=== PATIENT | female | born 1970 | race Caucasian/White ===

== ENCOUNTER → 2017-12-21 | Day surgery (SDC) | payer SELFPAY ==
[~2017-12-21] VITALS: Ht 149.9 cm; Wt 73.0 kg
[~2017-12-21] MED LIST: ALBU0.63 NEB; ALBUS PO; BUPIVACAINE HCL PF 0.5% 30 ML VIAL ONE; CEPH-460 PO; CHLORHEXIDINE GLUCONATE 2 % 1 PACK (2 CLOTHS) TOPICAL PRN; DEXAMETHASONE SOD PHOS 4 MG/ML VIAL OTHER ONE; FAMOTIDINE 20 MG/2 ML VIAL ONE; HYDR-3288 PO; IBUP1TAB7 PO; LACTATED RINGER'S 1000 ML IV PRN; LIDOCAINE HCL 1% PF 5 ML SYRINGE OTHER ONE; LIDOCAINE HCL 2% 50 ML VIAL ONE; METOPROLOL TARTRATE 25 MG TAB PO PRN; MIDAZOLAM HCL 2 MG/2 ML VIAL ONE; MULT-65 PO; NEOMYCIN/POLYMYXIN 1 ML G.U. IRRIGANT ONE; NORC5TAB PO; ONDANSETRON HCL 4 MG/2 ML VIAL IV PUSH ONE; OS-CTAB3 PO; PHENYLEPH/NS 1000 MCG/10 ML SYR OTHER ONE; POVIDONE IODINE 5% (ANTISEPSIS KIT) 4 APPLICATIONS EACH NARE PRN; PRIL20TA2 PO; PROPOFOL 200 MG/20 ML AMP OTHER ONE; RESP: ALBUTEROL 2.5 MG/3 ML NEB (PRN) ONE; SODIUM CHLORID 0.9% 500 ML IV PRN; SYMB80AE INH; VITA500T83 PO; ceFAZolin 2 GM PREMIX 50 ML IV SCH
[2017-12-21 12:35] LABS: HEMATOCRIT 46.1 % (35.0-46.0); HEMOGLOBIN 15.4 GM/DL (11.6-15.3); MEAN CELL VOLUME 90.8 FL (80.0-100.0); MEAN CORPUSCULAR HEMOGLOBIN 30.4 PG (27.0-34.0); MEAN CORPUSCULAR HGB CONC 33.4 % (32.0-36.0); MEAN PLATELET VOLUME 7.7 FL (7.0-11.0); PLATELET COUNT 345 TH/MM3 (150-450); RED BLOOD COUNT 5.08 MIL/MM3 (4.00-5.30); RED CELL DISTRIBUTION WIDTH 13.4 % (11.6-17.2); WHITE BLOOD COUNT 10.3 TH/MM3 (4.0-11.0)
[2017-12-21 17:35] VITALS: BP 122/74; PULSE 92; RESP 18; TEMP 98.1; O2SAT 97
--- NOTE | 2017-12-24 11:16 | MP ---
cc: NOEL MARQUEZ III, M.D. DATE OF SURGERY: 12/21/2017 PREOPERATIVE DIAGNOSIS: 1. Right fourth proximal phalanx fracture, intra-articular. 2. Right fifth metacarpal fracture. POSTOPERATIVE DIAGNOSIS: 1. Right fourth proximal phalanx fracture, intra-articular. 2. Right fifth metacarpal fracture. PROCEDURE: 1. Right fifth metacarpal open reduction, internal fixation. 2. Right fourth proximal phalanx open reduction, internal fixation, intra-articular, multiple fragments with 22 modifier. 3. Use of image intensifier. SURGEON: Noel Marquez III, MD. DESCRIPTION OF PROCEDURE: The patient was brought to the operating room and placed supine on the operating room table. After the correct site and side of surgery was verified by members of each team in the room multiple times, including the patient and myself, and after adequate general anesthesia had been achieved, the right upper extremity was prepped and draped in traditional sterile surgical fashion, using the C-arm, the entire procedure was verified, a 50/50 mixture of 2% plain lidocaine, 0.5% plain Marcaine was infiltrated in the skin and subcutaneous tissue deep to the bone for both planned procedures, the limb was exsanguinated with an Phillip wrap. A highly placed well-padded axillary tourniquet was inflated to 200 mmHg for total of 91 minutes. Manipulation of the fifth metacarpal did not yield any reduction. Longitudinal incision was made ulnarly. Blunt dissection was performed. Bipolar electrocautery was used as needed, periosteal elevator was used to expose the base of the metacarpal. An organized clot was extracted. Thorough irrigation was performed. Provisional fixation was held with 0.035 cm K-wire and then two separate screws with a [employer] stainless steel modular handset were used. They were tailored to length and direction using the mini C-arm as a guide. The K-wire, I decided to leave in, as it held the length of the bone and this will be taken out in six weeks. There was no mal-angulation or mal-rotation of the fifth finger. Thorough irrigation was performed. The skin edges were reapproximated using interrupted and running 4-0 chromic sutures. The K-wire was cut, bent and buried. The longitudinal incision was made over the dorsal aspect of the fourth finger proximal phalanx, carried down through skin and subcutaneous tissue. Blunt dissection was performed. Bipolar was used as needed. The extensor tendon was opened in its midline. Periosteal elevation revealed the injury which was a fracture at the base of the proximal phalanx, and it was intra-articular and the base was in three small pieces. Thorough irrigation was performed. Digital manual reduction was held. The most appropriate plate available from the set was selected, cut and shaped meticulously and then gently three proximal screws and four distal screws were drilled and placed, tailored to length and direction with some bone graft placed through one of the proximal screw holes. C-arm examination revealed anatomic alignment. Loop visualization revealed the articular surface was all reapproximated and fully intact. Passive range of motion did not reveal any mal-angulation or mal-rotation and allowed full range of motion at all joints. There were no other anatomic abnormalities identified. Thorough irrigation was performed. The tendons were repaired with a running 3-0 Vicryl suture and the skin edges reapproximated using running 4-0 chromic suture. The hand and arm were thoroughly cleansed and dried. Betadine Adaptic dressing applied atop of the wounds. Additional local anesthetic was injected for postoperative pain control. A well padded, well moulded, volar immobilizing splint was made keeping all fingers immobilized. The axillary tourniquet was released. The hand and all fingers became immediately soft, pink, and warm with brisk capillary refill of less than two seconds. The patient was awakened from anesthesia, transported to the Post-Anesthesia Care Unit awake and in stable condition. At the end of the case, sponge, needle and instrument counts were correct as reported by the nurses in the room. MD JOE Buck III/CED /4:03 PM /10:51 AM
== END | disposition home or self-care (01) ==
LOC: PHSDC 11:21 → MERGE 11:21
PROVIDERS: ATTEND Orthopaedic Surgery Hand Surgery
DX: S62.614A Displaced fracture of proximal phalanx of right ring finger, initial encounter for closed fracture (principal); S62.336A Displaced fracture of neck of fifth metacarpal bone, right hand, initial encounter for closed fracture; W19.XXXA Unspecified fall, initial encounter; Y92.481 Parking lot as the place of occurrence of the external cause
CPT/HCPCS: 01830; 26615; 26735; 36415; 76000; 85027; C1713; J0690; J2250; J3010; J7120; J7613; J1100; J2370; J2405

== ENCOUNTER 2018-11-03 09:27 | Observation (INO) ==
[2018-11-03] MEDS ORDERED: Morphine Inj 4 MG/ML Vial IV.PUSH ONE ×3 (09:44→12:13)
[2018-11-03] MEDS ORDERED: Sod Chloride 0.9% Inj 1,000 ML IV.SIG ONE (09:44)
[2018-11-03 10:05] LABS: Baso % (Auto) 0.2 % (0.0-2.0); Eos % (Auto) 0.2 % (0.0-4.0); Hematocrit 45.6 % (35.0-46.0); Lymph # (Auto) 1.4 th/mm3 (1.0-4.8); Lymph % (Auto) 8.6 % (9.0-44.0); Mean Corpuscular HGB Conc 35.1 % (32.0-36.0); Mean Corpuscular Hemoglobin 33.2 pg (27.0-34.0); Mean Corpuscular Volume 94.5 fL (80.0-100.0); Mean Platelet Volume 7.7 fL (7.0-11.0); Mono # (Auto) 0.8 th/mm3 (0.0-0.9); Mono % (Auto) 4.8 % (0.0-8.0); Neut # (Auto) 14.1 th/mm3 (1.8-7.7); Neut % (Auto) 86.2 % (16.0-70.0); Platelet Count 362 th/mm3 (150-450); Red Blood Count 4.82 mil/mm3 (4.00-5.30); Red Cell Distribution Width 14.2 % (11.6-17.2); White Blood Count 16.4 th/mm3 (4.0-11.0)
--- NOTE | 2018-11-03 10:15 | ED ---
HPI General Chief Complaint: Extremity Injury, Upper Stated Complaint: Left Arm Complaint/Fall Time Seen by Provider: 11/03/18 09:40 Source: patient and family Mode of arrival: ambulatory Limitations: no limitations History of Present Illness HPI narrative: Patient is a 48-year-old female, past medical history significant for asthma and possible meningioma who presents with complaint of left upper extremity pain. She states that she was walking in the house and came to on the floor. She apparently had fallen onto her left arm and has had several falls with unknown cause. Family member states that she had to clean up a lot of "liquid" from around her there was not sure what this may have been (ie vomit or urine). The patient does not know if she hit her head or not. She denies any chest pain, shortness of breath, abdominal pain. MD complaint: injury to: Reports left and arm Onset (ago): hour(s) Place: home Severity: moderate Relieving factors: none Exacerbating factors: none Context: Reports fall Associated symptoms: Reports denies other symptoms Related Data Home Medications Medication Instructions Recorded Confirmed albuterol sulfate 1 amp CONTINUOUS NEBULIZATION Q6H 06/25/18 06/25/18 PRN Previous Rx's Medication Instructions Recorded prochlorperazine maleate 10 mg PO TID PRN #10 tab 06/25/18 [Compazine] Allergies Allergy/AdvReac Type Severity Reaction Status Date / Time codeine AdvReac Nausea/Vomi Verified 06/25/18 08:57 ting Review of Systems ROS: all other systems reviewed are negative [facility] Medical History Medical History Asthma (Acute) Heart murmur (Acute) Surgical History Surgical History H/O hand surgery (Acute) H/O tubal ligation (Acute) Hx of cholecystectomy (Acute) Social History Social History Substance History: No History of Abuse Second Hand Smoke Exposure: Yes Smoking Status: Current every day smoker Tobacco Type: Cigarettes How Often Do You Have a Drink Containing Alcohol: 4 or more times a week Recent Travel in [facility] within the Last 8 Weeks: No Recent Out of Country Travel within the Last 8 Weeks: No Immunization History Tetanus Immunization: Unsure Exam Narrative Exam Narrative: GENERAL: Well-appearing female that appears to be in pain SKIN: Focused skin assessment warm/dry. Normal cap refill. HEAD: Atraumatic. Normocephalic. EYES: Pupils equal and round. No scleral icterus. No injection or drainage. ENT: No nasal bleeding or discharge. Mucous membranes pink and moist. NECK: Trachea midline. No JVD. CARDIOVASCULAR: Regular rate and rhythm. No murmur appreciated. Intact and equal peripheral pulses. RESPIRATORY: No accessory muscle use. Clear to auscultation. Breath sounds equal bilaterally. GASTROINTESTINAL: Abdomen soft, non-tender, nondistended. Hepatic and splenic margins not palpable. MUSCULOSKELETAL: No clubbing. No cyanosis. No edema. Obvious deformity to the left humerus. NEUROLOGICAL: Awake and alert. No obvious cranial nerve deficits. Motor grossly within normal limits. Normal speech. PSYCHIATRIC: Appropriate mood and affect; insight and judgment normal. Course Initial Documented Vital Signs Temperature 98.5 F 11/03/18 09:32 Pulse Rate 130 H 11/03/18 09:32 Respiratory Rate 18 11/03/18 09:32 Blood Pressure 169/82 H 11/03/18 09:32 Pulse Oximetry 95 11/03/18 09:32 Last Documented Vital Signs Temperature 98.5 F 11/03/18 09:32 Pulse Rate 78 11/03/18 13:11 Respiratory Rate 18 11/03/18 13:11 Blood Pressure 146/74 H 11/03/18 13:11 Pulse Oximetry 98 11/03/18 12:08 Medical Decision Making [facility] Narrative Medical decision making narrative: Patient is a 48-year-old female who presents with complaint of left upper extremity pain after she lost consciousness and fell onto it last night. She has had multiple recurrent episodes of loss of consciousness without an actual known cause. She reports a history of possible meningioma but does not know any further information. X-ray reveals a fracture of the left humerus and she was placed in a coaptation splint with sling. She is neurologically intact with normal radial nerve function. CT of the head and C-spine did not reveal acute abnormalities. EKG does show a shortened NH interval with possible upsloping of the QRS segment. The shortening of the NH interval with possible syncope is concerning for possible WPW versus LGL. Labs were otherwise unremarkable. She has been admitted to Dr. Nava, hospitalist insurance commissioner, for further evaluation and management of the syncope versus seizure. Medical Screen Exam Complete: Yes Emergency Medical Condition: Yes Differential Diagnosis Differential Diagnosis: Differential diagnosis includes but is not limited to syncope, seizure, fracture. Medical Records Medical records reviewed: Yes I reviewed the patient's medical records. Lab Data Lab results reviewed: Yes I reviewed the patient's lab results. Result diagrams: 11/03/18 09:50 11/03/18 09:50 POC Results POC Urine Results Negative Lab Results 11/03/18 11/03/18 11/03/18 Range/Units 09:50 09:50 09:50 WBC 16.4 H (4.0-11.0) th/mm3 RBC 4.82 (4.00-5.30) mil/mm3 Hgb 16.0 H (11.6-15.3) gm/dL Hct 45.6 (35.0-46.0) % MCV 94.5 (80.0-100.0) fL MCH 33.2 (27.0-34.0) pg MCHC 35.1 (32.0-36.0) % RDW 14.2 (11.6-17.2) % Plt Count 362 (150-450) th/mm3 MPV 7.7 (7.0-11.0) fL Neut % (Auto) 86.2 H (16.0-70.0) % Lymph % (Auto) 8.6 L (9.0-44.0) % [place] % (Auto) 4.8 (0.0-8.0) % Eos % (Auto) 0.2 (0.0-4.0) % Baso % (Auto) 0.2 (0.0-2.0) % Neut # (Auto) 14.1 H (1.8-7.7) th/mm3 Lymph # (Auto) 1.4 (1.0-4.8) th/mm3 [place] # (Auto) 0.8 (0.0-0.9) th/mm3 Eos # (Auto) 0.0 (0.0-0.4) th/mm3 Baso # (Auto) 0.0 (0.0-0.2) th/mm3 WBC Differential . Differential Comment Auto diff final Sodium 136 (136-145) meq/L Potassium 4.1 (3.5-5.1) meq/L Chloride 106 (98-107) meq/L Carbon Dioxide 21.8 (21.0-32.0) meq/L Anion Gap 8 (5-15) meq/L BUN 14 (7-18) mg/dL Creatinine 0.84 (0.50-1.00) mg/dL Estimated GFR 73 L (>89) mL/min Random Glucose 143 H (74-106) mg/dL Calcium 8.1 L (8.5-10.1) mg/dL Troponin I Less than 0.02 L (0.02-0.05) ng/mL B-Natriuretic Peptide 12 (0-100) pg/mL Imaging Data Attestation: I personally reviewed and interpreted this imaging study as follows : Radiologist's impression: Cervical Spine CT 11/03/18 09:44 CONCLUSION: 1. Degenerative disc disease with spondylosis at C4-5 and C5-6. 2. Intact cervical spine without evidence of acute bony or soft tissue trauma. Chest X-Ray 11/03/18 09:44 CONCLUSION: No evidence of acute cardiopulmonary process. Head CT 11/03/18 09:44 CONCLUSION: 1. Negative CT Head non contrast. 2. No evidence of acute infarct, hemorrhage, mass or edema. 3. Intact bony structures. . Humerus X-Ray 11/03/18 09:44 CONCLUSION: Displaced oblique fracture of the distal left humerus. ECG Data EKG Prior to Arrival: No Attestation: I personally reviewed and interpreted this ECG as follows: (Sinus tachycardia at a rate of [address] or T wave changes. There is a short NH interval of only 96 ms.) Discharge Plan Discharge Disposition Patient Disposition: ED Admit(ED Internal Use Only) Discharge Condition Condition: Stable Discharge Order Discharge Orders: ED Use Only Admit Order (Routine); Ordered 11/03/18 Ordered By: Caridad Jimenez Discharge Details Diagnosis: Loss of consciousness, Fracture of humerus Physicians Team ED Provider: Caridad Jimenez Primary Care Provider: Primary Care Denise Jackson Attending Provider: Tyrel Nava Status ED Status: Admitted Observation Patient
[2018-11-03 10:31] LABS: Anion Gap 8 meq/L (5-15); Blood Urea Nitrogen 14 mg/dL (7-18); Calcium 8.1 mg/dL (8.5-10.1); Carbon Dioxide 21.8 meq/L (21.0-32.0); Chloride 106 meq/L (98-107); Glomerular Filtration Rate 73 mL/min (>89); Glucose,Random 143 mg/dL (74-106); Potassium 4.1 meq/L (3.5-5.1); Sodium 136 meq/L (136-145)
--- NOTE | 2018-11-03 11:22 | XR ---
EXAM DATE: 11/03/2018 10:47 AM EST AGE/SEX: 48 years / Female INDICATIONS: Shortness of breath, post fall. Evaluate for pneumonia, pneumothorax and other communic able diseases. Pre-op surgery for left humerus. CLINICAL DATA: This is the patient's initial encounter. Patient reports that signs and symptoms have been present for 1 day and indicates a pain score of 0/10. MEDICAL/SURGICAL HISTORY: Chronic obstructive pulmonary disease. Asthma. Tubal ligation. COMPARISON: No prior exams available for comparison. FINDINGS: A single AP view of the chest demonstrates the lungs to be symmetrically aerated without evidence of mass, infiltrate or effusion. The cardiomediastinal contours are unremarkable. Osseous structures a re intact. CONCLUSION: No evidence of acute cardiopulmonary process. Electronically signed by: Dwaine Chang MD 11/03/2018 11:21 AM EST
--- NOTE | 2018-11-03 11:24 | XR ---
EXAM DATE: 11/03/2018 10:49 AM EST AGE/SEX: 48 years / Female INDICATIONS: Pain in left distal humerus, post fall. CLINICAL DATA: This is the patient's initial encounter. Patient reports that signs and symptoms have been present for 1 day and indicates a pain score of 10/10. MEDICAL/SURGICAL HISTORY: None. None. COMPARISON: No prior exams available for comparison. FINDINGS: An oblique displaced fracture of the distal left humerus is noted. The left shoulder and elbow joints appear grossly intact. CONCLUSION: Displaced oblique fracture of the distal left humerus. Electronically signed by: Dwaine Chang MD 11/03/2018 11:22 AM EST
--- NOTE | 2018-11-03 11:30 | CT ---
EXAM DATE: 11/03/2018 11:25 AM EST AGE/SEX: 48 years / Female INDICATIONS: Fell on left side. Pain. CLINICAL DATA: This is the patient's initial encounter. Patient reports that signs and symptoms have been present for 1 day and indicates a pain score of 10/10. MEDICAL/SURGICAL HISTORY: Asthma. Tubal ligation. Cholecystectomy. RADIATION DOSE: 58.72 CTDI (mGy) [place] [facility] [place]/25/2018. . TECHNIQUE: CT of the head without contrast. Using automated exposure control and adjustment of the mA and/or kV according to patient size, radiation dose was kept as low as reasonably achievable to ob tain optimal diagnostic quality images. DICOM format image data is available electronically for revi ew and comparison. FINDINGS: Cerebrum: The ventricles are normal for age. No evidence of midline shift, mass lesion, hemorrhage or acute infarction. No extraaxial fluid collections are seen. Posterior Fossa: The cerebellum and brainstem are intact. The 4th ventricle is midline. The cerebe llopontine angle is unremarkable. Extracranial: The visualized portion of the orbits is intact. Skull: The calvaria is intact. No evidence of skull fracture. CONCLUSION: 1. Negative CT Head non contrast. 2. No evidence of acute infarct, hemorrhage, mass or edema. 3. Intact bony structures. . Electronically signed by: Dwaine hCang MD 11/03/2018 11:28 AM EST
--- NOTE | 2018-11-03 11:36 | CT ---
EXAM DATE: 11/03/2018 11:28 AM EST AGE/SEX: 48 years / Female INDICATIONS: Fell on left side. Pain. CLINICAL DATA: This is the patient's initial encounter. Patient reports that signs and symptoms have been present for 1 day and indicates a pain score of 10/10. MEDICAL/SURGICAL HISTORY: Asthma. Cholecystectomy. Tubal ligation. RADIATION DOSE: 21.88 CTDI (mGy) COMPARISON: No prior exams available for comparison. TECHNIQUE: Contiguous axial images were obtained using helical multirow detector technique. The vol umetric data was post-processed with multiplanar reconstruction in oblique axial, sagittal, and coron al planes. Using automated exposure control and adjustment of the mA and/or kV according to patient s ize, radiation dose was kept as low as reasonably achievable to obtain optimal diagnostic quality sandy ges. DICOM format image data is available electronically for review and comparison. FINDINGS: ALIGNMENT: Straightening and slight reversal of normal lordosis is noted. Vertebral bodies are other huerta satisfactorily aligned without evidence of listhesis. FACET AND OSSEOUS STRUCTURES: Vertebral body height is well-maintained. There is no evidence of acut e fracture, or destructive changes. There is no significant facet arthropathy. INTERVERTEBRAL DISC SPACES: Moderate degenerative disc disease is identified at C4-5 and C5-6. There is disc space narrowing with marginal spondylosis. Significant anterior epidural effacement is seen at C5-6 due to posterior disc osteophyte complex. NEUROLOGIC STRUCTURES: The spinal cord and nerve roots appear normal. There is no evidence of jessica jeff. CONCLUSION: 1. Degenerative disc disease with spondylosis at C4-5 and C5-6. 2. Intact cervical spine without evidence of acute bony or soft tissue trauma. Electronically signed by: Dwaine Chang MD 11/03/2018 11:34 AM EST
[2018-11-03] MEDS ORDERED: Acetaminophen 325 MG Tablet PO PRN (13:11)
[2018-11-03] MEDS ORDERED: Haloperidol Inj 5 MG/ML Ampul IV.PUSH PRN (13:15)
--- NOTE | 2018-11-03 15:22 | P.HP ---
History of Present Illness Primary Care Physician: No Primary Care Physician Chief Complaint: Frequent passing out History of Present Illness: 48-year-old female with a past medical history of asthma, 1 pack/day tobacco use and daily alcohol consumption of 1 pin of vodka was brought to the ED by family member for evaluation of loss of consciousness and mechanical fall yesterday, resulting to trauma to her left upper extremity. Patient states, she was walking her puppy last night around 10:30 PM when she passed out and fell on the ground. Did not remember any episode. However this event was unwitnessed but when patient was seen after a family member, she was noted to be laying in some form of liquid. Patient denies any chest pain or shortness of breath. Patient states, she was told she had a history of meningioma. She complains of frequent headaches however without any associated visual disturbances. Head CT in the ED did not reveal any intracranial abnormality. Review of Systems All other systems reviewed negative except as stated in HPI [facility] - History History Provided By: Patient - Medical History Medical History: Medical History (Last Reviewed 11/03/18 @ 10:13 by Caridad Jimenez MD) Asthma Heart murmur - Surgical History Surgical History: Surgical History (Last Reviewed 11/03/18 @ 10:13 by Caridad Jimenez MD) H/O hand surgery H/O tubal ligation Hx of cholecystectomy - Family History Family History: Family History (Last Updated 11/03/18 @ 15:17 by Tyrel Nava MD) Other Lung cancer - Tobacco History Second Hand Smoke Exposure: Yes Tobacco Use In Past 30 Days: Yes Smoking Status: Current every day smoker Tobacco Type: Cigarettes - Alcohol History How Often Do You Have a Drink Containing Alcohol: 4 or more times a week - Substance Use History Substance History: No History of Abuse - Travel History Recent Travel in the [place] Within the Last 8 Weeks: No Recent Travel Out of the Country Within the Last 8 Weeks: No - Immunization History Tetanus Immunization: Unsure Medications and Allergies Active Medications: Active Medications Acetaminophen (Tylenol) 650 mg PO Q4H PRN PRN Reason: Temp > 100.4 Al Hydroxide/Mg Hydroxide (Milk Of Magnesia Liq) 30 ml PO Q12H PRN PRN Reason: Mild Constipation Albuterol (Duoneb Neb (Prn)) 1 ampul NEB Q2HR NEB PRN PRN Reason: SHORTNESS OF BREATH Clonidine HCl (Catapres) 0.1 mg PO Q6H PRN PRN Reason: SBP>160, DBP>90 Flumazenil (Romazecon Inj) 0.2 mg IV.PUSH Q1M PRN PRN Reason: OVERSEDATION Haloperidol Lactate (Haldol Inj) 1 mg IV.PUSH Q15M PRN PRN Reason: for severe agitation Lisinopril (Prinivil) 10 mg PO DAILY LUBNA Lorazepam (Ativan) 1 mg PO Q4H PRN PRN Reason: for CIWA 8-10 Lorazepam (Ativan) 2 mg PO Q2H PRN PRN Reason: for CIWA 11-14 Lorazepam (Ativan Inj) 2 mg IV.PUSH Q1H PRN PRN Reason: for CIWA 15-20 Lorazepam (Ativan Inj) 2 mg IV.PUSH Q15M PRN PRN Reason: for CIWA > 20 Lorazepam (Ativan Inj) 1 mg IV.PUSH Q4H PRN PRN Reason: for CIWA 8-10 Lorazepam (Ativan Inj) 2 mg IV.PUSH Q2H PRN PRN Reason: for CIWA 11-14 Nicotine (Habitrol 21 Mg Patch.24 Hr) 1 patch T-DERMAL DAILY LUBNA Last Admin: 11/03/18 14:35 Dose: 1 patch Ondansetron HCl (Zofran Inj) 4 mg IV.PUSH Q6H PRN PRN Reason: NAUSEA OR VOMITING Patch Removal (Remove Old Patch) 1 each T-DERMAL HS LUBNA Sodium Chloride (Ns Flush) 2 ml IV.FLUSH PRN PRN PRN Reason: FLUSH AFTER USING IV ACCESS Sodium Chloride (Ns Flush) 2 ml IV.FLUSH BID LUBNA Sodium Chloride (Ns Flush) 2 ml IV.FLUSH PRN PRN PRN Reason: FLUSH AFTER USING IV ACCESS Thiamine HCl (Vitamin B1) 100 mg PO BID LUBNA Allergies Allergy/AdvReac Type Severity Reaction Status Date / Time codeine AdvReac Nausea/Vomi Verified 06/25/18 08:57 ting Home Medications Medication Instructions Recorded Confirmed Type albuterol sulfate 1 amp CONTINUOUS NEBULIZATION Q6H 06/25/18 06/25/18 History PRN Exam Vital signs: Vital Signs 11/03/18 09:32 11/03/18 09:37 11/03/18 09:44 Temperature 98.5 F Pulse Rate 130 H 131 H Respiratory Rate 18 14 Blood Pressure 169/82 H 153/103 H Pulse Oximetry 95 94 L 98 11/03/18 12:08 11/03/18 13:11 Temperature Pulse Rate 120 H 78 Respiratory Rate 20 18 Blood Pressure 194/92 H 146/74 H Pulse Oximetry 98 Intake & Output 11/02/18 11/03/18 11/03/18 18:59 06:59 18:59 Intake Total 1000 / 1000 Balance 1000 / 1000 Weight 68.039 kg Intake: IV 1000 / 1000 NS Inj 1,000 ML @ Wide Open IV. 1000 / 1000 SIG BOLUS ONE Rx#:[id number] Narrative: GENERAL: NAD SKIN: Warm and dry. HEAD: Atraumatic. Normocephalic. EYES: Pupils equal and round. No scleral icterus. No injection or drainage. ENT: No nasal bleeding or discharge. Mucous membranes pink and moist. NECK: Trachea midline. No JVD. CARDIOVASCULAR: Regular rate and rhythm. RESPIRATORY: No accessory muscle use. Clear to auscultation. Breath sounds equal bilaterally. GASTROINTESTINAL: Abdomen soft, non-tender, nondistended. Hepatic and splenic margins not palpable. MUSCULOSKELETAL: Extremities without clubbing, cyanosis, or edema. No obvious deformities. LUE in splint-neurovascular intact NEUROLOGICAL: Awake and alert. No obvious cranial nerve deficits. Motor grossly within normal limits. Five out of 5 muscle strength in the arms and legs. Normal speech. PSYCHIATRIC: Appropriate mood and affect; insight and judgment normal. Results - Labs CBC & Chem 7: 11/03/18 09:50 11/03/18 09:50 Labs: Laboratory Results - last 24 hr 11/03/18 11/03/18 11/03/18 09:50 09:50 09:50 WBC 16.4 H RBC 4.82 Hgb 16.0 H Hct 45.6 MCV 94.5 MCH 33.2 MCHC 35.1 RDW 14.2 Plt Count 362 MPV 7.7 Neut % (Auto) 86.2 H Lymph % (Auto) 8.6 L Dale % (Auto) 4.8 Eos % (Auto) 0.2 Baso % (Auto) 0.2 Neut # (Auto) 14.1 H Lymph # (Auto) 1.4 Dale # (Auto) 0.8 Eos # (Auto) 0.0 Baso # (Auto) 0.0 WBC Differential . Differential Comment Auto diff final Sodium 136 Potassium 4.1 Chloride 106 Carbon Dioxide 21.8 Anion Gap 8 BUN 14 Creatinine 0.84 Estimated GFR 73 L Random Glucose 143 H Calcium 8.1 L Troponin I Less than 0.02 L B-Natriuretic Peptide 12 - Imaging Impressions Cervical Spine CT 11/03/18 09:44 CONCLUSION: 1. Degenerative disc disease with spondylosis at C4-5 and C5-6. 2. Intact cervical spine without evidence of acute bony or soft tissue trauma. Chest X-Ray 11/03/18 09:44 CONCLUSION: No evidence of acute cardiopulmonary process. Head CT 11/03/18 09:44 CONCLUSION: 1. Negative CT Head non contrast. 2. No evidence of acute infarct, hemorrhage, mass or edema. 3. Intact bony structures. . Humerus X-Ray 11/03/18 09:44 CONCLUSION: Displaced oblique fracture of the distal left humerus. Caprini VTE Risk Assessment Caprini VTE Risk Assessment: No/Low Risk (score <= 1) Caprini Risk Assessment Model: Point Value = 1 Point Value = 2 Point Value = 3 Point Value = 5 Age 41-60 Minor surgery BMI > 25 kg/m2 Swollen legs Varicose veins or History of unexplained or recurrent spontaneous Oral contraceptives or hormone replacement Sepsis (< 1 month) Serious lung disease, including pneumonia (< 1 month) Abnormal pulmonary function Acute myocardial infarction Congestive heart failure (< 1 month) History of inflammatory bowel disease Medical patient at bed rest Age 61-74 Arthroscopic surgery Major open surgery (> 45 min) Laparoscopic surgery (> 45 min) Malignancy Confined to bed (> 72 hours) Immobilizing plaster cast Central venous access Age >= 75 History of VTE Family history of VTE Factor V Leiden Prothrombin [id number] Lupus anticoagulant Anticardiolipin antibodies Elevated serum homocysteine Heparin-induced thrombocytopenia Other congenital or acquired thrombophilia Stroke (< 1 month) Elective arthroplasty Hip, pelvis, or leg fracture Acute spinal cord injury (< 1 month) Prophylaxis Regimen: Total Risk Factor Score Risk Level Prophylaxis Regimen 0-1 Low Early ambulation 2 Moderate Order ONE of the following: *Sequential Compression Device (SCD) *Heparin 5000 units SQ BID 3-4 Higher Order ONE of the following medications: *Heparin 5000 units SQ TID *Enoxaparin/Lovenox 40 mg SQ daily (WT < 150 kg, CrCl > 30 mL/min) *Enoxaparin/Lovenox 30 mg SQ daily (WT < 150 kg, CrCl > 10-29 mL/min) *Enoxaparin/Lovenox 30 mg SQ BID (WT < 150 kg, CrCl > 30 mL/min) AND/OR *Sequential Compression Device (SCD) 5 or more Highest Order ONE of the following medications: *Heparin 5000 units SQ TID (Preferred with Epidurals) *Enoxaparin/Lovenox 40 mg SQ daily (WT < 150 kg, CrCl > 30 mL/min) *Enoxaparin/Lovenox 30 mg SQ daily (WT < 150 kg, CrCl > 10-29 mL/min) *Enoxaparin/Lovenox 30 mg SQ BID (WT < 150 kg, CrCl > 30 mL/min) AND *Sequential Compression Device (SCD) Assessment and Plan - Plan 48-year-old female with Syncope May be multi-factorial, however patient's drinking history is likely the most common cause Head CT noted and reviewed by me without any intracranial abnormality Check EEG to rule out any abnormal electrical activity Check 2D echo to rule out any valvular abnormality Frequent falls May be secondary to patient's history of alcohol abuse Cervical spine CT noted and read by me without any significant disease However will rule out any valvular disorder as well as any abnormal electrical activity Left upper extremity pain Humerus X-Ray noted and reviewed by me with finding of displaced oblique fracture of the distal left humerus Nonsurgical management and continue with splint Leukocytosis Likely stress reactive, continue to monitor Alcohol abuse - monitor for withdraw symptoms, start CIWA protocol rally pack; cessation counseling provided. Tobacco abuse Tobacco counseling cessation provided Start nicotine patch
[2018-11-03] MEDS ORDERED: Naloxone Inj 0.4 MG/ML Vial IV.PUSH PRN (17:22)
--- NOTE | 2018-11-03 17:25 | ECG ---
Date Performed: 11/03/2018 Time Performed: 09:53:00 PTAGE: 48 years EKG: SINUS TACHYCARDIA WITH SHORT MA INTERVAL ABNORMAL RHYTHM ECG NO PREVIOUS TRACING DOCTOR: Iván Larson Interpretating Date/Time 11/03/2018 17:22:36
[2018-11-03] MEDS: Ibuprofen 400 MG Tablet PO PRN (17:53)
[2018-11-03 20:14] LABS: Creatine Kinase 190 U/L (26-192)
--- NOTE | 2018-11-03 21:55 | MG ---
cc: Robinson Abraham MD, PhD TEST NUMBER: [id number] TECHNIQUE: This is a 17-channel EEG. DESCRIPTION: The background rhythm reveals symmetrical alpha activity, frequency 8-10 Hz. Amplitude is about 20 mV. No lateralizing features are identified. No epileptiform features are seen. There is occasional muscle artifact. Photic stimulation results in a normal driving response. INTERPRETATION: This is a normal electroencephalogram. Robinson Abraham MD, PhD GALINA/rh , 07:22 PM , 07:25 PM
[2018-11-03] MEDS: LORazepam 1 MG Tablet PO PRN (22:00)
[2018-11-04] MEDS: LORazepam 1 MG Tablet PO PRN (07:59)
[2018-11-04 08:39] LABS: Baso % (Auto) 0.4 % (0.0-2.0); Eos # (Auto) 0.2 th/mm3 (0.0-0.4); Eos % (Auto) 1.6 % (0.0-4.0); Hematocrit 40.3 % (35.0-46.0); Hemoglobin 13.9 gm/dL (11.6-15.3); Lymph # (Auto) 1.5 th/mm3 (1.0-4.8); Lymph % (Auto) 15.7 % (9.0-44.0); Mean Corpuscular HGB Conc 34.6 % (32.0-36.0); Mean Corpuscular Hemoglobin 33.1 pg (27.0-34.0); Mean Corpuscular Volume 95.5 fL (80.0-100.0); Mean Platelet Volume 7.8 fL (7.0-11.0); Mono # (Auto) 0.6 th/mm3 (0.0-0.9); Mono % (Auto) 6.8 % (0.0-8.0); Neut # (Auto) 7.2 th/mm3 (1.8-7.7); Neut % (Auto) 75.5 % (16.0-70.0); Platelet Count 248 th/mm3 (150-450); Red Blood Count 4.22 mil/mm3 (4.00-5.30); Red Cell Distribution Width 14.2 % (11.6-17.2); White Blood Count 9.6 th/mm3 (4.0-11.0)
[2018-11-04 08:56] LABS: Alanine Aminotransferase 34 U/L (10-53); Albumin 3.1 g/dL (3.4-5.0); Alkaline Phosphatase 90 U/L (45-117); Anion Gap 8 meq/L (5-15); Aspartate Aminotransferase 23 U/L (15-37); Blood Urea Nitrogen 13 mg/dL (7-18); Calcium 7.3 mg/dL (8.5-10.1); Carbon Dioxide 24.7 meq/L (21.0-32.0); Chloride 106 meq/L (98-107); Glomerular Filtration Rate Greater Than 89 mL/min (>89); Glucose,Random 84 mg/dL (74-106); Sodium 139 meq/L (136-145); Total Protein 6.7 g/dL (6.4-8.2)
[2018-11-04] MEDS: Lisinopril 10 MG Tablet PO SCH (09:08)
[2018-11-04] MEDS: Ibuprofen 400 MG Tablet PO PRN (09:08)
[2018-11-04] MEDS ORDERED: Naloxone Inj 0.4 MG/ML Vial IV.PUSH PRN (11:28)
[2018-11-04] MEDS ORDERED: Ibuprofen 400 MG Tablet PO PRN (11:28)
[2018-11-04] MEDS ORDERED: Morphine Inj 4 MG/ML Vial IV.PUSH ONE (11:29)
[2018-11-04] MEDS: Sod Chloride 0.9% Inj 1,000 ML IV.CONT SCH ×2 (11:45→20:00)
--- NOTE | 2018-11-04 14:12 | ECHRPT ---
Indication: SYNCOPE CONCLUSIONS Normal left ventricular size. Wall thickness is normal. The left ventricular systolic function is hyperdynamic with an estimated ejection fraction in the ra nge of 65- 70%. Trace mitral valve regurgitation. There is trace tricuspid valve regurgitation. BP: / HR: Rhythm: Sinus MEASUREMENTS (Male / Female) Normal Values Technical Quality:Fair 2D ECHO LV Diastolic Diameter PLAX 4.7 cm 4.2 - 5.9 / 3.9 - 5.3 cm LV Systolic Diameter PLAX 3.1 cm IVS Diastolic Thickness 1.0 cm 0.6 - 1.0 / 0.6 - 0.9 cm LVPW Diastolic Thickness 1.0 cm 0.6 - 1.0 / 0.6 - 0.9 cm LV Relative Wall Thickness 0.4 RV Internal Dim ED PLAX 2.4 cm LVOT Diameter 1.6 cm Aortic Root Diameter 2.7 cm LA Systolic Diameter LX 3.0 cm 3.0 - 4.0 / 2.7 - 3.8 cm M-MODE AV Cusp Separation MM 1.4 cm DOPPLER AV Peak Velocity 152.0 cm/s AV Peak Gradient 9.2 mmHg AV Mean Gradient 5.0 mmHg AV Velocity Time Integral 18.3 cm LVOT Peak Velocity 117.0 cm/s LVOT Peak Gradient 5.5 mmHg LVOT Velocity Time Integral 15.0 cm AV Area Cont Eq vti 1.6 cm AV Area Cont Eq pk 1.5 cm Mitral E Point Velocity 66.6 cm/s Mitral A Point Velocity 90.3 cm/s Mitral E to A Ratio 0.7 LV E' Lateral Velocity 9.1 cm/s Mitral E to LV E' Lateral Ratio 7.3 LV E' Septal Velocity 7.8 cm/s Mitral E to LV E' Septal Ratio 8.5 PV Peak Velocity 87.2 cm/s PV Peak Gradient 3.0 mmHg FINDINGS LEFT VENTRICLE Normal left ventricular size. Wall thickness is normal. The left ventricular systolic function is hyperdynamic with an estimated ejection fraction in the ra nge of 65- 70%. RIGHT VENTRICLE Normal right ventricular size and systolic function. LEFT ATRIUM The left atrial size is normal. RIGHT ATRIUM The right atrial size is normal. ATRIAL SEPTUM The interatrial septum not well visualized. AORTA The aortic root and proximal ascending aorta are not well visualized. MITRAL VALVE Trace mitral valve regurgitation. AORTIC VALVE Trileaflet aortic valve. No aortic valve stenosis or regurgitation. TRICUSPID VALVE There is trace tricuspid valve regurgitation. PULMONARY VALVE The pulmonary valve is not well visualized. VESSELS The inferior vena cava was not well visualized. PERICARDIUM No pericardial effusion. Ronaldo Ceballos MD, FACC (Electronically Signed) Final Date:04 November 2018 14:11
--- NOTE | 2018-11-04 15:14 | P.PNIM ---
Subjective Interval history: Patient is seen sitting up in bed. Left arm is in sling. She is noted to have a rapid heart rate of 120+ she tells me that she is very anxious right now and in pain. Patient reports that she has a history of frequent palpitations exacerbated by anxiety. She has not seen a hand candy dipper for this. She also tells me that she has MS which is what is causing her more frequent falls. Unfortunately she does not have insurance so does not follow with primary or any specialist. She denies chest pain or shortness of breath with the palpitations. No dizziness or syncope. No vision changes. History of frequent migraines but not having one now. No nausea vomiting or diarrhea. Physical Exam Vital signs: Last Vital Signs Temp 97.1 F L 11/04/18 11:10 Pulse 96 H 11/04/18 11:10 Resp 20 11/04/18 11:10 BP 127/78 11/04/18 11:10 Pulse Ox 96 11/04/18 11:10 Intake & Output 11/02/18 11/03/18 11/04/18 11/05/18 06:59 06:59 06:59 06:59 Intake Total 1360 / 1360 Balance 1360 / 1360 Weight 68.039 kg Narrative: GENERAL: Obese, well-developed adult female in no acute distress. SKIN: Warm and dry. HEAD: Atraumatic. Normocephalic. EYES: Pupils equal and round. No scleral icterus. No injection or drainage. CARDIOVASCULAR: Tachycardic. Regular rate and rhythm. RESPIRATORY: No accessory muscle use. Clear to auscultation. Breath sounds equal bilaterally. GASTROINTESTINAL: Abdomen soft, non-tender, nondistended. MUSCULOSKELETAL: Extremities without clubbing, cyanosis, or edema. No obvious deformities. LUE in splint-neurovascular intact NEUROLOGICAL: Awake and alert. No obvious cranial nerve deficits. Motor grossly within normal limits. Normal speech. PSYCHIATRIC: Appropriate mood and affect; insight and judgment normal. Results Labs CBC & Chem 7: 11/04/18 06:55 11/04/18 06:55 Assessment and Plan Plan 48-year-old female with a past medical history of asthma, self-reported MS, and meningioma who was brought to the emergency room by family member after a syncopal episode and fall with injury to her left upper arm. Syncope May be multi-factorial, however patient's drinking history is likely the most common cause Head CT, EEG, and echo with no concerning findings MRI ordered Frequent falls May be secondary to patient's history of alcohol abuse Cervical spine CT without any significant disease However will rule out any valvular disorder as well as any abnormal electrical activity Left upper extremity pain Humerus X-Ray noted and reviewed by me with finding of displaced oblique fracture of the distal left humerus Nonsurgical management and continue with splint Pain control as needed Leukocytosis Likely stress reactive, now WNL Alcohol abuse - monitor for withdraw symptoms, start CIWA protocol rally pack; cessation counseling provided. Tobacco abuse Tobacco counseling cessation provided Start nicotine patch DVT prophylaxis: Heparin Discharge planning: Likely home. May need assistance with follow-up appointment to neurology/cardio as she has no insurance [employer] Prescription Drug Monitoring Database has been queried and verified prior to prescribing the controlled substance. Acute pain exception. This patient has normal, predicted, physiological, and time limited response to an adverse mechanical stimulus associated with surgery, trauma, or acute illness as described in my notes. There is a lack of alternative treatment options other than to include the prescribed narcotic treatment for this condition. Progress Note: Quality VTE Deep Vein Thrombosis/Pulmonary Embolism Present on Admission: No
--- NOTE | 2018-11-04 17:38 | MR ---
EXAM DATE: 11/04/2018 5:27 PM EST AGE/SEX: 48 years / Female INDICATIONS: . Syncope. CLINICAL DATA: This is the patient's initial encounter. Patient reports that signs and symptoms have been present for 2 days and indicates a pain score of 0/10. MEDICAL/SURGICAL HISTORY: . Migraines. Cholecystectomy. Tubal ligation. best possible images, pt unable to lay flat. creative coils used. pt sts sister has MS COMPARISON: [facility], CT HEAD W/O CONTRAST, 11/03/2018. . TECHNIQUE: Multiplanar, multisequence examination of the brain was performed without and with 7cc ml Gadavist (gadobutrol) contrast as a single exam dose. FINDINGS: Diffusion sequences are degraded by some type of artifact. Cerebrum: Ventricles are normal. No midline shift, mass lesion, hemorrhage or acute infarction. No extraaxial fluid collections are seen. The pituitary gland and suprasellar cistern are normal in con figuration. White Matter: There is mild asymmetric periventricular white matter signal change adjacent to the fr ontal horns bilaterally, left greater than right. Posterior Fossa: The cerebellum and brainstem demonstrate no acute abnormality. The 4th ventricle is midline. The cerebellopontine angle is within normal limits. The cerebellar tonsils are normal in p osition. Diffusion Imaging: No areas of restricted diffusion are seen. Extracranial: The visualized sinuses are clear. Post contrast: No abnormal areas of contrast enhancement are identified. CONCLUSION: 1. No acute intracranial abnormality is identified. 2. There is mild asymmetric periventricular white matter signal change adjacent to the frontal horns bilaterally. The appearance is nonspecific but not characteristic of multiple sclerosis. Electronically signed by: Geraldo Bryson MD 11/04/2018 5:37 PM EST
[2018-11-04] MEDS ORDERED: Gadobutrol PF 7.5 MMOL/7.5 ML Vial (for RAD) IV.SIG ONE (17:57)
[2018-11-04] MEDS: Heparin - SQ 10,000 UNITS/ML Vial SQ SCH (21:25)
[2018-11-05 04:09] VITALS: TEMP 96.9
[2018-11-05] MEDS: Sod Chloride 0.9% Inj 1,000 ML IV.CONT SCH (07:26)
[2018-11-05 08:06] LABS: Amphetamine Screen,Urine Neg (Neg); Barbiturate Screen,Urine Neg (Neg); Cannabinoid Screen,Urine Pos (Neg); Cocaine Screen,Urine Neg (Neg)
[2018-11-05 08:15] LABS: Opiate Screen,Urine Pos (Neg)
[2018-11-05 08:16] VITALS: BP 124/88; RESP 16; O2SAT 97
[2018-11-05] MEDS: Heparin - SQ 10,000 UNITS/ML Vial SQ SCH (08:31)
[2018-11-05] MEDS: Lisinopril 10 MG Tablet PO SCH (08:31)
--- NOTE | 2018-11-05 09:09 | P.PN ---
Subjective Interval history: Follow up for humerus fracture, syncope, alcohol abuse. The patient is seen sitting upright on side of bed, wants to go home. Denies any further syncopal episodes. She states her left arm pain is fairly well controlled with pain medications. Denies any lightheadedness, dizziness, chest pain, palpitations, shortness of breath, or abdominal complaints. Discussed follow-up with orthopedics and neurology, patient verbalized understanding, requested mandatory outpatient referral from case management. Physical Exam Vital signs: Vital Signs 11/04/18 11:10 11/04/18 16:00 11/05/18 00:00 Temperature 97.1 F L 97.8 F 97 F L Pulse Rate 96 H 92 H 92 H Respiratory Rate 20 20 16 Blood Pressure 127/78 130/75 117/73 Pulse Oximetry 96 97 97 11/05/18 04:00 11/05/18 07:00 11/05/18 08:00 Temperature 96.9 F L Pulse Rate 93 H 92 H Respiratory Rate 16 12 16 Blood Pressure 143/63 H 124/88 Pulse Oximetry 94 L 97 Intake & Output 11/04/18 11/05/18 11/05/18 18:59 06:59 18:59 Intake Total 720 / 720 1000 / 1000 Output Total 750 / 750 Balance -30 / -30 1000 / 1000 Intake: IV 1000 / 1000 NS Inj 1,000 ML @ 125 mls/hr IV 1000 / 1000 .CONT .Q8H LUBNA Rx#:[id number] Oral 720 / 720 Output: Urine 750 / 750 Other: # Voids 6 Narrative: GENERAL: Well-nourished, well-developed middle-aged female patient in [facility]. SKIN: Warm and dry. No rash. HEENT: Normocephalic. Atraumatic. Pupils equal and round. Mucous membranes pink and moist. CARDIOVASCULAR: Regular rate and rhythm. No murmur appreciated. RESPIRATORY: No accessory muscle use. Clear to auscultation. Breath sounds equal bilaterally. GASTROINTESTINAL: Abdomen soft, non-tender, nondistended. Normoactive bowel sounds x4. MUSCULOSKELETAL: No obvious deformities. Extremities without clubbing, cyanosis , or edema. LUE and splint/sling, distal sensation intact with brisk capillary refill. NEUROLOGICAL: Awake and alert. No obvious cranial nerve deficits. Motor grossly within normal limits. Moving all extremities spontaneously. Normal speech. PSYCHIATRIC: Appropriate mood and affect; insight and judgment normal. Results - Labs CBC & Chem 7: 11/04/18 06:55 11/04/18 06:55 Laboratory Results - last 24 hr 11/05/18 06:14 Urine Opiates Screen Pos H Ur Barbiturates Screen Neg Ur Amphetamines Screen Neg U Benzodiazepines Scrn Neg Urine Cocaine Screen Neg U Cannabinoids Screen Pos H - Imaging Impressions Cervical Spine CT 11/03/18 09:44 CONCLUSION: 1. Degenerative disc disease with spondylosis at C4-5 and C5-6. 2. Intact cervical spine without evidence of acute bony or soft tissue trauma. Chest X-Ray 11/03/18 09:44 CONCLUSION: No evidence of acute cardiopulmonary process. Head CT 11/03/18 09:44 CONCLUSION: 1. Negative CT Head non contrast. 2. No evidence of acute infarct, hemorrhage, mass or edema. 3. Intact bony structures. . Humerus X-Ray 11/03/18 09:44 CONCLUSION: Displaced oblique fracture of the distal left humerus. Head MRI 11/04/18 00:00 CONCLUSION: 1. No acute intracranial abnormality is identified. 2. There is mild asymmetric periventricular white matter signal change adjacent to the frontal horns bilaterally. The appearance is nonspecific but not characteristic of multiple sclerosis. Assessment and Plan - Plan 48-year-old female with a past medical history of asthma, self-reported MS, and meningioma who was brought to the emergency room by family member after a syncopal episode and fall with injury to her left upper arm. Syncope: Suspect multifactorial, however likely patient's alcohol abuse is contributing factor. Head CT, EEG, and echo all reviewed and unremarkable Brain MRI reviewed, shows no acute findings, mild asymmetric periventricular white matter signal change adjacent to the frontal horns bilaterally. The appearance is nonspecific but not characteristic of multiple sclerosis. No further episodes, stable for discharge, outpatient referral to neurology Discussed no driving, seizure precautions Frequent falls Suspect secondary to patient's history of alcohol abuse Cervical spine CT without any significant disease However will rule out any valvular disorder as well as any abnormal electrical activity Left humerus fracture with left upper extremity pain Humerus X-Ray noted and reviewed by me with finding of displaced oblique fracture of the distal left humerus Nonsurgical management and continue with splint/sling Pain control as needed Mandatory outpatient referral with orthopedics Leukocytosis Likely stress reactive, now WBCs WNL Alcohol abuse monitor for withdraw symptoms on [facility] protocol rally pack cessation counseling provided. Tobacco abuse Tobacco counseling cessation provided nicotine patch DVT prophylaxis: Heparin Discharge Planning: Case management consulted to assist with mandatory outpatient referrals to orthopedics and neurology. Discharge patient to home Condition on discharge: Stable Regular Diet as tolerated Ad Patrizia activity, NWB LUE, no driving, seizure precautions Rx written: [place], lisinopril Follow-up with primary care physician, orthopedics, neurology [facility] Prescription Drug Monitoring Database has been queried and verified prior to prescribing the controlled substance. Acute pain exception. This patient has normal, predicted, physiological, and time limited response to an adverse mechanical stimulus associated with surgery, trauma, or acute illness as described in my notes. There is a lack of alternative treatment options other than to include the prescribed narcotic treatment for this condition.
[2018-11-05 09:45] VITALS: PULSE 94
--- NOTE | 2018-11-05 19:06 | ECG ---
Date Performed: 11/04/2018 Time Performed: 15:38:21 PTAGE: 48 years EKG: SINUS TACHYCARDIA WITH SHORT CT INTERVAL LOW QRS VOLTAGE IN PRECORDIAL LEADS ABNORMAL RHYTH M ECG PREVIOUS TRACING : 11/03/2018 09.53 Since the previous tracing, no significant change noted DOCTOR: Frank Ramachandran Interpretating Date/Time 11/05/2018 19:04:29
== END 2018-11-05 10:07 | disposition home or self-care (01) ==
LOC: NEDA 09:27 → NEPE 09:27 → NEDA 15:38 → NEPHCDU 16:21
PROVIDERS: ADMIT Hospitalist; ATTEND Hospitalist